=== PATIENT | female | born 1955 | race Hispanic/Latino ===

== ENCOUNTER 2022-07-22 08:23 | Emergency (ER) | payer OTHER, MEDICARE ==
[~2022-07-22] VITALS: Ht 157.5 cm; Wt 88.5 kg
[2022-07-22] MEDS ORDERED: KETOROLAC 15MG/ML VIAL (15MG/ML) IM ONE (12:00)
[2022-07-22] MEDS ORDERED: METH-811 PO (13:40)
[2022-07-22] MEDS ORDERED: KETO10TA2 PO (13:40)
[2022-07-22 15:15] VITALS: BP 148/73
== END 2022-07-22 15:26 | disposition home or self-care (01) ==
LOC: EDH 08:23
DX: M54.41 Lumbago with sciatica, right side (principal); I10 Essential (primary) hypertension; E78.00 Pure hypercholesterolemia, unspecified; E11.9 Type 2 diabetes mellitus without complications; Z88.5 Allergy status to narcotic agent; Z90.710 Acquired absence of both cervix and uterus
CPT/HCPCS: 99283; 72100; 96372; J1885